=== PATIENT | male | born 1955 ===

== ENCOUNTER 2016-04-21 19:04 | Emergency (ER) | payer BC ==
[2016-04-21 19:15] VITALS: BP 139/95
--- NOTE | 2016-04-21 20:16 | UC ---
Palpitation/Dysrhythmia HP - HPI Summary HPI Summary: The patient comes in today for: 1. Palpitations: Onset: 7 hours ago. Palliative/provocative: Nothing makes his skipped beats better or worse. Quality: "skipped beats"--no pain. Region: Heart. Severity: 0/10 Time: "several times a minute." Associated symptoms: Event: At about 1:30 PM while in his office a colleague said that he looked red and "tired." He has a history of sleep apnea he has not been treating. His pulse was taken and there were "skipped beats." He had this re-evaluated by an EMT friend who said that he had "skipped beats" and BP of 132/85, with a pulse of about 74 at this time. He was skipping "3 beats/per min" He denied having any chest pain, shortness of breath or near-syncope or syncope. He left work and met with his patient financial specialist for about 2 hours. He later called the his provider or recommended that he go to here or the ER. He did not want to go to the ER. Previous heart problems: None. CAD risk factors: Male over age 45, cholesterol is "high but not super high. " HTN is "better than what one would expect--120/80. DM (-), no previous heart disease, non-smoker, but untreated sleep apnea diagnosed 5-6 years ago. Fm Hx of premature CAD: None. * - History of Current Complaint Chief Complaint: UCGeneralIllness Stated Complaint: PALPITATIONS Time Seen by Provider: 04/21/16 19:39 - Allergy/Home Medications Allergies/Adverse Reactions: Allergies Allergy/AdvReac Type Severity Reaction Status Date / Time No Known Allergies Allergy Verified 04/21/16 19:15 Home Medications: Home Medications Aspirin Low Dose CHEW TAB* [Aspirin Low Dose TAB*] 81 mg PO DAILY 04/21/16 [ History Confirmed 04/21/16] Multiple Vitamins W/ Minerals [Multivitamin Adults] 1 tab PO DAILY 04/21/16 [ History Confirmed 04/21/16] PMH/Surg Hx/FS Hx/Imm Hx Previously Healthy: No Endocrine History Of: Reports: Dyslipidemia Denies: Diabetes, Thyroid Disease, Hyperthyroidism, Hypothyroidism Cardiovascular History Of: Denies: Cardiac Disorders, Hypertension, Pacemaker/ICD, Myocardial Infarction , Congestive Heart Failure, Atrial Fibrillation, Deep Vein Thrombosis, Bleeding Disorders Respiratory History Of: Denies: COPD, Asthma, Bronchitis, Pneumonia, Pulmonary Embolism GI/ History Of: Denies: Gastroesophageal Reflux, Ulcer, Gastrointestinal Bleed, Gall Bladder Disease, Kidney Stones, Diverticulitis, Renal Disease, Urosepsis Neurological History Of: Denies: TIA, CVA, Dementia, Seizures, Migraine Psychological History Of: Denies: Anxiety, Depression, Bipolar Disorder, Schizophrenia, Post Traumatic Stress Disorder Cancer History Of: Denies: Lung Cancer, Colorectal Cancer, Breast Cancer, Prostate Cancer, Cervical Cancer Other History Of: Negative For: HIV, Hepatitis B, Hepatitis C, Anticoagulant Therapy - Surgical History Surgical History: None - Family History Known Family History: Negative: Cardiac Disease, Hypertension - Social History Occupation: Employed Full-time Alcohol Use: None Substance Use Type: None Smoking Status (MU): Never Smoked Tobacco Review of Systems Constitutional: Negative Skin: Negative Eyes: Negative ENT: Negative Respiratory: Negative Cardiovascular: Palpitations Gastrointestinal: Negative Genitourinary: Negative Motor: Negative Neurovascular: Negative Musculoskeletal: Negative Neurological: Negative Psychological: Negative All Other Systems Reviewed And Are Negative: Yes Physical Exam Triage Information Reviewed: Yes Appearance: Well-Appearing, No Pain Distress, Well-Nourished Vital Signs: Initial Vital Signs Temp 98.5 F 04/21/16 19:07 Pulse 73 04/21/16 19:07 Resp 18 04/21/16 19:07 BP 139/95 04/21/16 19:07 Pulse Ox 98 04/21/16 19:07 Vital Signs Reviewed: Yes Eyes: Positive: Conjunctiva Clear. Negative: Discharge ENT: Positive: Hearing grossly normal. Negative: Pharyngeal erythema, Nasal congestion, Nasal drainage, TM bulging, TM dull, TM red, Tonsillar swelling, Tonsillar exudate Dental: Negative: Gross Decay/Caries @, Dental Fracture @ Neck: Positive: Supple, Nontender, No Lymphadenopathy, Other: - NO thyromegally or tenderness.. Negative: Nuchal Rigidity Respiratory: Positive: Lungs clear, No respiratory distress, No accessory muscle use. Negative: Crackles, Stridor Cardiovascular: Positive: RRR, No Murmur Abdomen Description: Positive: Nontender, No Organomegaly, Soft, Distended, Guarding Musculoskeletal: Positive: Strength Intact, ROM Intact, No Edema Neurological: Positive: Alert, Muscle Tone Normal Psychological: Positive: Age Appropriate Behavior, Consolable Skin: Negative: rashes, breakdown Palpitations Course/Dx - Course Course Of Treatment: Patient was told that skipped beats can me a worrisome finding or nothing to worry about at all--it all depends on what kind of beats they are (atrial premature beat vs PVC/runs). He was told that we only saw an isolated premature atrial beat. He was told that because he was not having any symptoms (dyspnea, chest pain, near syncope), it appears that his premature beats are more of the benign nature. He was encouraged to avoid any stimulants (caffeine, decongestants, etc) and to use his sleep apnea machine. He agreed to see his primary care provider for further cardiac work up. If he gets worse , he should be seen sooner in the ER. He was encourated to stay with someone who can watch him. - Differential Dx/Diagnosis Provider Diagnoses: palpitations, premature atrial beat. Discharge - Discharge Plan Condition: Stable Disposition: HOME Patient Education Materials: Palpitations (ED) Referrals: Levi Jimenez MD [Primary Care Provider] - As Soon As Possible (Please contact your primary care provider tomorrow for a follow-up evaluation as soon as you can. If you get worse, please be seen in the ER.)
== END 2016-04-21 20:52 | disposition home or self-care (01) ==
LOC: UCEAST 19:04
DX: R00.2 Palpitations (principal); I49.1 Atrial premature depolarization; Z79.82 Long term (current) use of aspirin
CPT/HCPCS: 93005; 99201; G0463

== ENCOUNTER 2017-05-11 09:45 | Emergency (ER) | payer BC ==
[2017-05-11 10:07] VITALS: BP 125/67
--- NOTE | 2017-05-11 11:10 | UC ---
Hip/Pelvis Pain - History Of Current Complaint Chief Complaint: UCLowerExtremity Stated Complaint: HIP PAIN Pain Intensity: 6 - Allergies/Home Medications Allergies/Adverse Reactions: Allergies Allergy/AdvReac Type Severity Reaction Status Date / Time No Known Allergies Allergy Verified 05/11/17 10:07 Home Medications: Home Medications Ibuprofen 700 mg PO BID PRN 05/11/17 [History Confirmed 05/11/17] metFORMIN* [Glucophage 500 MG TAB *] 500 mg PO BID 05/11/17 [History Confirmed 05/11/17] PMH/Surg Hx/FS Hx/Imm Hx Other History Of: Negative For: HIV, Hepatitis B, Hepatitis C, Anticoagulant Therapy - Surgical History Surgical History: Yes Surgery Procedure, Year, and Place: TONSILS - Family History Known Family History: Negative: Cardiac Disease, Hypertension - Social History Alcohol Use: None Substance Use Type: None Smoking Status (MU): Never Smoked Tobacco - Immunization History Most Recent Tetanus Shot: unknown Physical Exam Vital Signs: Initial Vital Signs Temp 97.7 F 05/11/17 10:01 Pulse 76 05/11/17 10:01 Resp 20 05/11/17 10:01 BP 125/67 05/11/17 10:01 Pulse Ox 98 05/11/17 10:01 Discharge - Discharge Plan Referrals: Levi Jimenez MD [Primary Care Provider] -
--- NOTE | 2017-05-11 12:24 | UC ---
Hip/Pelvis Pain - HPI Summary HPI Summary: 3 DAYS OF LEFT HIP PAIN GETTING WORSE. HAD GONE ON A SHORT HIKE THE DAY BEFORE SYMPTOM ONSET. DISCOMFORT WORSE WHEN HE WALKS - PT LIMPING. DENIES KNEE PAIN. NO FALLS OR TRAUMA. NO NUMBNESS/TINGLING OR SADDLE ANESTHESIA. - History Of Current Complaint Chief Complaint: UCLowerExtremity Stated Complaint: HIP PAIN Time Seen by Provider: 05/11/17 11:12 Hx Obtained From: Patient Onset/Duration: Gradual Onset, Lasting Days, Still Present Severity Initially: Moderate Severity Currently: Moderate Pain Intensity: 6 Pain Scale Used: 0-10 Numeric Location: Discrete At: - LEFT HIP Character Of Pain: Aching, Throbbing Aggravating Factor(s): Weight Bearing Alleviating Factor(s): Rest Associated Signs And Symptoms: Negative: Swelling, Redness, Bruising, Fever, Knee Pain - Allergies/Home Medications Allergies/Adverse Reactions: Allergies Allergy/AdvReac Type Severity Reaction Status Date / Time No Known Allergies Allergy Verified 05/11/17 10:07 Home Medications: Home Medications Ibuprofen 700 mg PO BID PRN 05/11/17 [History Confirmed 05/11/17] metFORMIN* [Glucophage 500 MG TAB *] 500 mg PO BID 05/11/17 [History Confirmed 05/11/17] PMH/Surg Hx/FS Hx/Imm Hx Endocrine History: Diabetes Other History Of: Negative For: HIV, Hepatitis B, Hepatitis C, Anticoagulant Therapy - Surgical History Surgical History: Yes Surgery Procedure, Year, and Place: TONSILS - Family History Known Family History: Negative: Cardiac Disease, Hypertension - Social History Alcohol Use: None Substance Use Type: None Smoking Status (MU): Never Smoked Tobacco - Immunization History Most Recent Tetanus Shot: unknown Review of Systems Constitutional: Negative Skin: Negative Respiratory: Negative Cardiovascular: Negative Gastrointestinal: Negative Musculoskeletal: Arthralgia All Other Systems Reviewed And Are Negative: Yes Physical Exam Triage Information Reviewed: Yes Appearance: Well-Appearing, No Pain Distress, Well-Nourished Vital Signs: Initial Vital Signs Temp 97.7 F 05/11/17 10:01 Pulse 76 05/11/17 10:01 Resp 20 05/11/17 10:01 BP 125/67 05/11/17 10:01 Pulse Ox 98 05/11/17 10:01 Vital Signs Reviewed: Yes Eyes: Positive: Conjunctiva Clear ENT: Positive: Hearing grossly normal Neck: Positive: Supple Respiratory: Positive: No respiratory distress, No accessory muscle use Cardiovascular: Positive: Pulses Normal Abdomen Description: Positive: Soft Musculoskeletal: Positive: ROM Intact, No Edema, Other: - NEG LUZ ELENA/FAIR. NEG STRAIGHT LEG RAISE. NO PAIN WITH ACTIVE/PASSIVE MOVEMENT AT HIP. NOT TENDER OVER GREATER TROCHANTER/BURSA Neurological: Positive: Alert Psychological: Positive: Abnormal Response To Family Skin: Negative: rashes Hip Injury Course/Dx - Course Course Of Treatment: DISCUSSED XRAYS TO EVALUATE FOR BONY PATHOLOGY. PT DECLINES AT PRESENT WHICH IS REASONABLE. WILL TREAT WITH NSAIDS AND FLEXERIL IF NEEDED. FOLLOW-UP PCP IF NOT IMPROVING EXPECTED. - Differential Dx/Diagnosis Provider Diagnoses: LEFT HIP PAIN Discharge - Discharge Plan Condition: Stable Disposition: HOME Prescriptions: Cyclobenzaprine HCl [Flexeril 5 mg (NF)] 5 - 10 mg PO BID PRN #10 tab PRN Reason: Pain Patient Education Materials: Hip Pain (ED) Referrals: Levi Gibson MD [Primary Care Provider] - If Needed Additional Instructions: YOUR SYMPTOMS RESPONDED WELL TO IBUPROFEN. YOU MAY HAVE AN OVERUSE INJURY OF THE MUSCULATURE AROUND YOUR HIP OR AGGRAVATION OF OSTEOARTHRITIS IN THE HIP JOINT. AT THIS TIME YOUR EXAM IS NOT CONSISTENT WITH BURSITIS, SCIATICA, PIRIFORMIS SYNDROME, NERVE IMPINGEMENT OR BONY INJURY/FRACTURE. WILL HOLD OFF ON XRAYS FOR NOW. OKAY TO CONTINUE OTC IBUPROFEN NEEDED FOR DISCOMFORT. IBUPROFEN MAX DOSE: 600MG (3 TABS) EVERY 6 HRS OR 800MG (4 TABS) EVERY 8 HRS. WILL GIVE SHORT COURSE OF FLEXERIL TO USE NEEDED. WOULD START WITH 5MG NIGHTLY BEFORE BED. OKAY TO TAKE UP TO 10MG TWICE DAILY. BE SURE TO GO THROUGH SLOW RANGE OF MOTION AND STRETCHING EXERCISES DAILY YOU ARE ABLE TO PREVENT STIFFENING UP AND MAKING THE DISCOMFORT WORSE. SEEK FOLLOW-UP WITH DR. GIBSON IF YOUR SYMPTOMS PERSIST OR WORSEN. YOU MAY BENEFIT FROM IMAGING AT THAT TIME.
== END 2017-05-11 12:10 | disposition home or self-care (01) ==
LOC: UCEAST 09:45
DX: M25.552 Pain in left hip (principal); E11.9 Type 2 diabetes mellitus without complications; Z79.84 Long term (current) use of oral hypoglycemic drugs
CPT/HCPCS: 99212; G0463